=== PATIENT | male | born 1975 | race Caucasian/White ===

== ENCOUNTER 2016-10-19 11:46 | Emergency (ER) | payer MEDICARE ==
[~2016-10-19 11:46] MED LIST: ACETAMINOPHEN PO; ADVAIR 2501 DISK W/D PO; ALBUTEROL17 GM INH; CERTAGEN PO; COMBIVENT INH14.7 GM; COMBIVENT INH14.7 GM INH; FLOVENT HFA12 GM INH; PREDNISONE; PREDNISONE PO; PULMICORT200 MCG/AE INH; WALGREENS PHARMACY; ZITHROMAX PO
== END 2016-10-19 12:25 | disposition home or self-care (01) ==
LOC: CED 11:46
DX: J45.901 Unspecified asthma with (acute) exacerbation (principal)
CPT/HCPCS: 94640; 99283